=== PATIENT | male | born 1960 | race Caucasian/White ===

== ENCOUNTER 2018-10-13 22:14 | Emergency (ER) | payer OTHER, SELFPAY ==
[2018-10-13 22:14] VITALS: BP 141/88; PULSE 89; RESP 16; TEMP 36.8; O2SAT 98; BMI 25.0
--- NOTE | 2018-10-13 23:44 | ED.VISSUMM ---
- ER Visit Summary Date of Service: 10/13/18 Chief Complaint: Syncope History of Present Illness: The patient is a 58 M who presents with syncope. The patient was intoxicated last night. He states that he smoked a joint. He also may have been a little dehydrated. He he stood up from sitting and began to feel dizzy and then passed out and hit his head. He had a mild headache right afterwards that has since resolved. He currently denies any headache nausea vomiting. He states he has had a tetanus immunization within the last 5 years. He denies any chest pain or shortness of breath. No recent illness. No fevers. Physical Examination: Afebrile vitals unremarkable GCS of 15 with no focal or lateralizing neurological deficits There is a 6 cm scalp laceration of the high right parietal and occipital scalp there is no active bleeding there is no erythema there is no drainage no palpable skull fracture No montero sign or hemotympanum no raccoon eyes Neck nontender Heart regular rate and rhythm Lungs are clear Abdomen soft Test Results: Not indicated Emergency Department Course and Treatment: Patient states he is really just here to have his wound evaluated. He attributes his dizziness to the alcohol intoxication and marijuana. He states he has had similar symptoms before. I discussed we could check laboratory studies EKG orthostatics. He did not want any of this done. His wound was cleansed and dressed and he was advised on wound care at home. He was instructed on specific signs and symptoms to monitor for, conditions which should prompt return here to the emergency department including but not limited to headache, vomiting, redness, drainage, uncontrolled bleeding from wound. Treatment Plan: [] Disposition: Discharge Impression: Closed head injury Scalp laceration Syncope This note was generated with [employer] dictation software. It may contain incorrect words, spelling, and punctuation that were not noted in review of the chart prior to signing ED Disposition - Plan for ED Patient: Referrals: Care Physician,No Primary [Primary Care Provider] -
--- NOTE | 2018-10-13 23:49 | ED.DEP ---
ED Disposition - Plan for ED Patient: Instructions: ED Dizziness Syncope Fainting W Pre, ED Laceration Old Not Sutr, ED Head Injury Closed Referrals: Care Physician,No Primary [Primary Care Provider] -
== END 2018-10-14 00:15 | disposition home or self-care (01) ==
PROVIDERS: Emergency Provider Emergency Medicine
DX: S09.90XA Unspecified injury of head, initial encounter (principal); S01.01XA Laceration without foreign body of scalp, initial encounter; W19.XXXA Unspecified fall, initial encounter; Y93.9 Activity, unspecified; Y92.89 Other specified places as the place of occurrence of the external cause; Y99.9 Unspecified external cause status; R55 Syncope and collapse; F10.129 Alcohol abuse with intoxication, unspecified; Y90.9 Presence of alcohol in blood, level not specified; F12.90 Cannabis use, unspecified, uncomplicated
CPT/HCPCS: 99283

== ENCOUNTER 2022-03-17 10:08 | Emergency (ER) | payer MEDICAID, SELFPAY ==
[2022-03-17 10:09] VITALS: BP 155/87; PULSE 78; RESP 15; TEMP 36.1; O2SAT 98; BMI 25.7
--- NOTE | 2022-03-17 10:20 | EX.ED.GUMALE ---
HPI History of Present Illness Chief Complaint: Male Pain/Injury Informant: patient Pain Onset: Yesterday Context: Sudden Onset Timing: Continuous Worsened by: Nothing Relieved by: Nothing Narrative Narrative: Patient presents with priapism for the past 24 hours. Patient states he was drinking with a friend of his 2 nights ago and his friend gave him a half a tablet of Seroquel to take. Patient does not normally take Seroquel. Patient states he woke up yesterday morning with an erection. Patient states it has been constant since yesterday morning. Patient states he has tried ice at home with no improvement. Patient denies any prior history of priapism. PFSH PFSH Medical History no medical history no medical history Home Medications NK 10/13/18 [History Last Taken Unknown] Allergy/AdvReac Type Severity Reaction Status Date / Time No Known Allergies Allergy Verified 03/17/22 10:11 Surgical History no surgical history no surgical history Social History Smoking Status: Current every day smoker tobacco type: cigarettes ROS ROS ED Constitutional Constitutional ED: Denies chills or fever(s) Eyes Eyes: Denies blurry vision or change in vision ENT ENT ED: Denies rhinorrhea or sore throat Cardiovascular Cardiovascular: Denies chest pain or palpitations Respiratory/Chest Respiratory/Chest: Denies cough or dyspnea Gastrointestinal Gastrointestinal: Denies nausea or vomiting Genitourinary Genitourinary ED: Denies dysuria or hematuria Musculoskeletal Musculoskeletal: Denies back pain or neck pain Integumentary Denies abscess or rash Neurologic Neurologic: Denies headache(s) or weakness Allergic/Immunologic Allergic/Immunologic ED: Denies mouth swelling or urticaria EXAM Physical Exam Const Vital Signs: 03/17/22 10:09 Temperature 96.9 F L Temperature Source Temporal Pulse Rate 78 Respiratory Rate 15 Blood Pressure 155/87 H Blood Pressure Mean 109 Pulse Ox 98 Oxygen Delivery Method Room Air Positive well nourished, well developed and unkempt General Appearance ED: unkempt, well developed and NAD HEENT Reports moist mucous membranes Neck supple and no JVD Resp normal respiratory effort and clear to auscultation bilaterally Cardio regular rate, regular rhythm and no murmurs GI normal to inspection, nondistended, normoactive bowel sounds and non-tender Palpation: soft Narrative: There is a an erection. There are no external lesions. There is no discharge or drainage. There is no testicular tenderness. Extremity normal to inspection General Extremety ED: Negative for edema or tenderness General Extremity: Negative for edema Neuro oriented x3, CN's II-XII intact bilaterally and no sensory deficits noted Sensorium / Orientation: alert Motor Exam: strength 5/5 throughout Psych mental status grossly normal Appearance: unkempt Skin no rashes or lesions noted MDM MDM MDM Narrative Medical decision making narrative: Case was discussed with Dr. Whyte, urologist on-call. He recommended transferring the patient to a different facility. Case was discussed with [facility]. Dr. Capone from urology was contacted. He accepted the patient but wanted him to go to the emergency department. Case was discussed with Dr. Allison in the emergency department. He also accepted the patient to be transferred. Patient requested to go by private vehicle. Patient was instructed to go directly to the emergency department at [facility]. Patient was instructed to not eat anything. Patient and friend understand and are agreeable with the plan. All questions were answered. Discharge Plan Triage Chief Complaint: Male Pain/Injury ED Provider: Elio Cruz Dx/Rx/DC Orders Clinical Impression: Priapism Prescriptions: No Action NK Primary Care Provider: Care Physician,No Primary Referrals: Care Physician,No Primary [Primary Care Provider] - Activity Restrictions/Additional Instructions: Go directly to [facility] emergency department. Do not eat anything or drink anything. Disposition Disposition: Acute Care Hospital Discharge Location: [facility]
[2022-03-17 11:34] VITALS: BP 135/96; PULSE 74; RESP 18; TEMP 36.6; O2SAT 97
--- NOTE | 2022-03-17 11:41 | CM.ED ---
SW Note NICK reviewed tracker and noted that patient has no PCP. NICK met with patient. He reports he had a PCP in [place] but no PCP in [place]. NICK provided patient with [facility] Healthcare Provider list. no other issues or concerns voiced. NICK remains available if needs arise. Marisa COLON
== END 2022-03-17 12:13 | disposition short-term general hospital (02) ==
PROVIDERS: Emergency Provider Emergency Medicine; Visit Provider Emergency Medicine
DX: N48.30 Priapism, unspecified (principal); F17.210 Nicotine dependence, cigarettes, uncomplicated
CPT/HCPCS: 99283